=== PATIENT | male | born 1950 | race Hispanic/Latino ===

== ENCOUNTER 2020-01-13 21:35 | Emergency (ER) | payer MEDICARE ==
[~2020-01-13] VITALS: Ht 185.4 cm; Wt 113.4 kg
--- NOTE | 2020-01-13 22:35 | NUR ---
PT STATED HE DOES NOT WANT TO WAIT ANY LONGER, PT STATED HE SHOULD NOT HAVE TO WAIT, PT WAS VERY RUDE AND STATED HE DID NOT WANT TO ANSWER ANY MORE QUESTIONS HE JUST WANTS TO SEE THE DOCTOR, WHEN DR WHITE WAS AT BEDSIDE PT REFUSED TO ANSWER QUESTIONS. PT LEFT AMA WITHOUT SIGNING PAPERWORK. PT WAS HERE FOR A TOTAL OF 1 HOUR, HAD XRAY AND WAS WAITING ON RESULTS.
--- OUTSIDE RECORDS SUMMARY | 2020-01-13 22:49 | XMS REPORT | Clinical Summary ---
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 Active PLAVIX 75 mg tablet 0 7 Active rosuvastatin (CRESTOR) 10 0 MG tablet 7 Active ferrous sulfate 325 (65 0 FE) MG tablet 7 Active RANEXA 500 mg 12 hr ER 0 tablet 7 Active valsartan (DIOVAN) 160 MG 0 tablet 7 Active IBUPROFEN/DIPHENHYDRAMINE Take 1 tablet 0 CIT (ADVIL PM ORAL) by mouth nightly. Active Problems Not on file Family History Medical History Relation Name Comments Esophageal cancer Brother No Known Problems Father No Known Problems Maternal Aunt Heart disease Mother No Known Problems Sister Relation Name Status Comments Brother Father Maternal Aunt Mother Sister Social History Date Tobacco Use Types Packs/Day Years Used Current Every Day Smoker Cigarettes 1 40 Smokeless Tobacco: Never Used Drinks/Week oz/Week Comments Alcohol Use 42 Cans of beer 7 Shots of liquor 49.0 Yes Sex Assigned at Date Recorded Not on file Industry Job Start Date Occupation Not on file Not on file Not on file Travel End Travel History Travel Start No recent travel history available. 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
--- NOTE | 2020-01-13 22:51 | Diagnostic Imaging Report ---
EXAMINATION: CXR 2 VIEW - HOPD INDICATION: Cough COMPARISON: None FINDINGS: TUBES and LINES: None. LUNGS: Normal lung volumes. Lungs are clear. No consolidations. PLEURA: No pleural effusion or pneumothorax. HEART AND MEDIASTINUM: The cardiomediastinal silhouette is unremarkable. Ravi tract hyperdensities project in the posterior heart on lateral view. BONES AND SOFT TISSUES: No acute osseous lesion. Soft tissues are unremarkable. UPPER ABDOMEN: No free air under the diaphragm. IMPRESSION: No acute thoracic radiographic abnormality. Suspect coronary artery calcific disease and/or coronary artery stent. Signed by: Abhay Mathur DO on 01/13/2020 10:47 PM
--- NOTE | 2020-01-14 00:53 | Emergency Department Note ---
History of Present Illnes History of Present Illness Chief Complaint: COVID PUI History of Present Illness This is a 69 year old male who presents with non-productive cough for 1 to 2 weeks. No fever/chills. No known sick contacts. No runny nose. No ear aches, no headache. No smell or taste difficulty. No CP, SOB, N/V. No muscle aches, no general malaise. Historian: Patient Arrival Mode: Car Head Neck Surgeon Required: No Onset (how long ago): week(s) Severity: unable to specify Duration (how long): week(s) Progression: waxing and waning Context: Denies recent surgery, Denies recent immobilization, Denies recent travel, Denies trauma/injury Relieving factors: none Exacerbating factors: none Associated symptoms: Reports cough; Denies chest pain, Denies diaphoresis, Denies fever/chills, Denies headaches, Denies loss of appetite, Denies malaise, Denies nausea/vomiting, Denies rash, Denies shortness of breath, Denies syncope, Denies weakness Past Medical/Family History Physician Review I have reviewed the patient's past medical and family history. Any updates have been documented here. Past Medical History Recent Fever: No Clinical Suspicion of Infectio: No New/Unexplained Change in Ment: No Past Medical History: Hypertension, CAD, Hyperlipedemia Other Surgery: CARDIAC STENT X3 Social History Smoking Cessation: Never Smoker Counseling Performed: No Alcohol Use: Occasional Any Illegal Drug Use: No Physically hurt or threatened: No Other Any Pre-Existing Lines (PICC,: No Review of Systems Review of Systems Constitutional: Reports no symptoms Cardiovascular: Reports no symptoms Respiratory: Reports as per HPI Gastrointestinal: Reports no symptoms Genitourinary: Reports no symptoms Musculoskeletal: Reports no symptoms Integumentary: Reports no symptoms Neurological: Denies no symptoms, Denies as per HPI, Denies headache, Denies numbness, Denies paresthesia, Denies pre-existing deficit, Denies seizure, Denies tingling, Denies tremors, Denies weakness, Denies other Psychological: Reports no symptoms Review of other systems: All other systems negative Physical Exam Related Data Triage Vital Signs Vital Signs Date Time Temp Pulse Resp B/P (MAP) Pulse Ox O2 Delivery O2 Flow Rate FiO2 01/13/20 21:35 98.2 88 17 180/67 96 Room Air Physical Exam CONSTITUTIONAL Constitutional: Present well-developed, Present well-nourished HENT HENT: Present normocephalic, Present atraumatic, Present oropharynx clear/moist, Present nose normal HENT L/R: Present left ext ear normal, Present right ext ear normal EYES Eyes: Reports PERRL, Reports conjunctivae normal NECK Neck: Present ROM normal, Present supple PULMONARY Pulmonary: Present breath sounds normal, Present other (completes full sentences, handles secretions, coughs regularly during exam); Absent respiratory distress, Absent rales, Absent rhonchi, Absent chest tenderness CARDIOVASCULAR Cardiovascular: Present regular rhythm, Present heart sounds normal, Present capillary refill normal, Present normal rate GASTROINTESTINAL Abdominal: Present soft, Present nontender, Present bowel sounds normal GENITOURINARY SKIN Skin: Present warm, Present dry MUSCULOSKELETAL Musculoskeletal: Present ROM normal NEUROLOGICAL Neurological: Present alert, Present oriented x 3, Present no gross motor or sensory deficits PSYCHOLOGICAL Psychological: Present mood/affect normal, Present judgement normal Results Imaging Imaging Comments EXAMINATION: CXR 2 VIEW - HOPD INDICATION: Cough COMPARISON: None FINDINGS: TUBES and LINES: None. LUNGS: Normal lung volumes. Lungs are clear. No consolidations. PLEURA: No pleural effusion or pneumothorax. HEART AND MEDIASTINUM: The cardiomediastinal silhouette is unremarkable. Ravi tract hyperdensities project in the posterior heart on lateral view. BONES AND SOFT TISSUES: No acute osseous lesion. Soft tissues are unremarkable. UPPER ABDOMEN: No free air under the diaphragm. IMPRESSION: No acute thoracic radiographic abnormality. Suspect coronary artery calcific disease and/or coronary artery stent. Signed by: Amina Mathur DO on 01/13/2020 10:47 PM Dictated By: AMINA MATHUR DO 46 Transcribed By: HARRY on 01/13/202246 Assessment & Plan Medical Decision Making MDM Patient eloped shortly after returning to room from Xray. Attempted to speak to patient as he was walking down the asif, but he would not stop to talk to me just stated "I'm leaving". Reviewed CXR while waiting for radiologist report and NAD per my review. RN also attempted to stop patient - patient kept walking and did not respond to RN. I was not able to review the CXR results with patient or give d/c instructions. Assessment & Plan Final Impression: (1) HTN (hypertension) (2) Bronchitis (3) Person under investigation for severe acute respiratory syndrome coronavirus 2 (SARS-CoV-2) infection Depart Disposition: ELOPED Last Vital Signs Date Time Temp Pulse Resp B/P (MAP) Pulse Ox O2 Delivery O2 Flow Rate FiO2 01/13/20 21:35 98.2 88 17 180/67 96 Room Air JUANCARLOS WHITE MD Jan 14, 2020 00:53
== END 2020-01-13 22:35 | disposition left against medical advice (07) ==
LOC: FSED 21:35 → EDBD 21:35 → FSED 22:35
DX: J40 Bronchitis, not specified as acute or chronic (principal); R05 Cough; I10 Essential (primary) hypertension; E78.5 Hyperlipidemia, unspecified; I25.10 Atherosclerotic heart disease of native coronary artery without angina pectoris; Z95.5 Presence of coronary angioplasty implant and graft
CPT/HCPCS: 71046; 99282

== ENCOUNTER → 2020-11-25 | Day surgery (SDC) | payer MEDICARE ==
[2020-11-20 09:04] LABS: BASOPHILS # (AUTO) 0.1 (0.0-0.1); EOSINOPHILS # (AUTO) 0.2 (0.0-0.4); EOSINOPHILS % 3.4 % (0.0-6.0); HEMATOCRIT 35.1 % (38.2-49.6); HEMOGLOBIN 10.6 g/dL (14.0-18.0); LYMPHOCYTES # (AUTO) 1.1 (1.0-3.2); LYMPHOCYTES % 22.4 % (18.0-39.1); MEAN CORPUSCULAR HEMOGLOBIN 24.2 pg (28-32); MEAN CORPUSCULAR HGB CONC 30.2 g/dL (31-35); MEAN CORPUSCULAR VOLUME 80.1 fL (81-99); MONOCYTES # (AUTO) 0.6 (0.2-0.8); MONOCYTES % 12.4 % (4.4-11.3); NEUTROPHILS % 60.4 % (38.7-80.0); PLATELET COUNT 447 x10e3/uL (140-360); RED BLOOD COUNT 4.38 x10e6/uL (4.3-5.7); RED CELL DISTRIBUTION WIDTH 18.8 % (11.7-14.4)
[2020-11-20 09:23] LABS: ALANINE AMINOTRANSFERASE 10 IU/L (0-55); ALBUMIN/GLOBULIN RATIO 1.3 (0.8-2.0); ALKALINE PHOSPHATASE 69 IU/L (40-150); ANION GAP 13.1 mmol/L (8-16); BLOOD UREA NITROGEN 12 mg/dL (7-26); BUN/CREATININE RATIO 11 (6-25); CALCIUM 9.7 mg/dL (8.4-10.2); CARBON DIOXIDE 24 mmol/L (22-29); CHLORIDE 93 mmol/L (98-107); CREATININE, SERUM 1.13 mg/dL (0.72-1.25); EST GLOMERULAR FILTRATION RATE > 60 ML/MIN (60-); GLUCOSE 112 mg/dL (74-118); POTASSIUM 5.1 mmol/L (3.5-5.1); SODIUM 125 mmol/L (136-145)
[2020-11-25] VITALS (7 sets, daily range): BP systolic 125–154; BP diastolic 70–91
[~2020-11-25] VITALS: Ht 185.4 cm; Wt 111.1 kg
[~2020-11-25] MED LIST: ALPRAZOLAM 0.5 MG TAB ONE; AMLODIPINE BESYL5 MG PO; AVODART0.5 MG PO; CLOPIDOGREL75 MG PO; DIPHENHYDRAMINE HCL 25 MG CAP ONE; FENTANYL CITRATE/PF 100MCG/2 ML INJ ONE; HEPARIN SOD/SOD CHLORIDE 2,000 ML ONE; IOPAMIDOL 370 MG/ML 200 ML INFUS..BTL INJ ONE; LIDOCAINE HCL 2% LOCAL 20 ML VIAL ONE; LISINOPRIL10 MG PO; METOPROLOL TART25 MG PO; MIDAZOLAM HCL 2 MG/2 ML VIAL ONE; OMEPRAZOLE40 MG PO; OXYBUTYNIN CHLOR5 MG PO; SODIUM CHLORIDE 0.9% 1000ML 1,000 ML ONE; TRIAMTERENE-HCTZ1 EA PO; TYLENOL EXTRA500 M2 PO; VITAMIN D350 MCG PO
== END | disposition home or self-care (01) ==
LOC: CATH LAB 11:39
PROVIDERS: ATTEND Internal Medicine Interventional Cardiology
DX: I25.118 Atherosclerotic heart disease of native coronary artery with other forms of angina pectoris (principal); R94.39 Abnormal result of other cardiovascular function study; I10 Essential (primary) hypertension; E78.01 Familial hypercholesterolemia; Z79.02 Long term (current) use of antithrombotics/antiplatelets; Z68.32 Body mass index [BMI] 32.0-32.9, adult; Z95.5 Presence of coronary angioplasty implant and graft
CPT/HCPCS: 36415; 76937; 80053; 83880; 85025; 93458; C1887; J2001; J2250; J3010; J7030; Q9967; 99152